=== PATIENT | female | born 1950 | race Caucasian/White ===

== ENCOUNTER 2020-09-01 23:38 | Emergency (ER) | payer SELFPAY ==
[~2020-09-01] VITALS: Ht 162.6 cm; Wt 65.0 kg
[~2020-09-01 23:38] MED LIST: AMOX1TAB61 PO; ATEN25TA; ENAL10TA9 PO; HYDR-3653 PO; OMEPRAZOLE PO; ONDA4TAB7 PO; POTASSIUM PO; [UNRECOGNIZED DRUG - OTHER]
[2020-09-01 23:41] VITALS: BP 186/113
--- NOTE | 2020-09-01 23:51 | NUR ---
THIS IS A 70F THAT COMES IN FOR HIGH BP AT HOME, PER PT SHE IS COMPLIANT WITH BP MEDICATIONS. UPON ARRIVAL TO ED, PT DENIES ALL DIZZINESS/ [place]/ SOB/ CP. STS LAST HOME BP WAS 227/117. PT IS AMBULATORY WITH SISTER TO ED ROOM. DENIES NEEDS. PT CONNECTED TO ALL MONITORING
[2020-09-02 00:32] LABS: MEAN CORPUSCULAR HGB CONC 33.6 g/dL (32.4-35.8); MEAN PLATELET VOLUME 9.9 fL (7.4-10.4); PLATELET COUNT 209 x10^3/uL (130-400); RED BLOOD COUNT 4.66 x10^6/uL (3.82-5.3); RED CELL DISTRIBUTION WIDTH 14.2 % (9.6-15.2)
[2020-09-02 00:40] LABS: ALBUMIN 3.7 g/dL (3.4-5.0); ANION GAP 2 mmol/L (5-15); CALCIUM 9.1 mg/dL (8.5-10.1); CHLORIDE 109 mmol/L (98-107)
[2020-09-02 00:45] LABS: CREATININE 1.18 mg/dL (0.55-1.02); TROPONIN I < 0.015 ng/mL (0.000-0.045)
[2020-09-02 01:28] LABS: MD YES
[2020-09-02 01:30] LABS: EOS#(MANUAL) 0.16 x10^3/uL (0.0-0.4); EOS% (MANUAL) 2 % (1-7); LYMPH#(MANUAL) 2.24 x10^3/uL (1-3.4); LYMPHS% (MANUAL) 28 % (22-44); MONOS#(MANUAL) 0.56 x10^3/uL (0.3-2.7); MONOS% (MANUAL) 7 % (2-9); SEG#(MANUAL) 5.04 x10^3/uL (1.8-6.8); SEGS% (MANUAL) 63 % (42-75)
[2020-09-02 01:31] LABS: <PLATELET ESTIMATE> ADEQUATE; <PLT MORPHOLOGY> NORMAL PLT MORPH; <RBC MORPHOLOGY> NORMAL
--- NOTE | 2020-09-02 01:51 | NUR ---
Patient/Caregiver given discharge instructions and they have confirmed that they understand the instructions. Patient ambulatory with steady gait.
== END 2020-09-02 01:52 | disposition home or self-care (01) ==
LOC: ED 23:45
DX: I10 Essential (primary) hypertension (principal); R94.31 Abnormal electrocardiogram [ECG] [EKG]
CPT/HCPCS: 36415; 80048; 82040; 84484; 85025; 93005; 99284